=== PATIENT | female | born 1960 | race Caucasian/White ===

== ENCOUNTER 2018-08-02 19:36 | Inpatient (IN) | payer SELFPAY ==
[~2018-08-02 19:36] MED LIST: ISOVUE-370 76%-LOCM 1 ML ONE
[2018-08-02 20:21] LABS: #Eosinphils 0.1 thou/uL (0.0-0.7); #Lymphocytes 1.4 thou/uL (1.20-3.40); #Monocytes 0.5 thou/uL (0.11-0.59); #Neutrophils 8.6 thou/uL (1.40-6.50); %Basophils 0.4 % (0.0-1.0); %Eosinophils 0.8 % (0.0-10.0); %Neutrophils 80.8 % (42.0-75.0); Hemoglobin 15.3 g/dL (12.0-16.0); Mean Corpuscular HGB CONC 33.5 g/dL (32.0-36.0); Mean Corpuscular Hemoglobin 32.2 pg (27.0-31.0); Mean Corpuscular Volume 96.1 fL (78.0-98.0); Mean Platelet Volume 6.8 fL (7.4-10.4); Platelet Count 331 thou/uL (130-400); RBC Distribution Width 12.5 % (11.5-14.5); Red Blood Cell (RBC) Count 4.76 mill/uL (4.20-5.40); White Blood Cell (WBC) Count 10.6 thou/uL (4.8-10.8)
[2018-08-02 20:38] LABS: ALT (SGPT) 66 U/L (8-55); AST (SGOT) 29 U/L (5-34); Alkaline Phosphatase 73 U/L (40-150); Anion Gap 13 mmol/L (10-20); BUN (Urea Nitrogen) 14 mg/dL (9.8-20.1); Bilirubin, Total 0.6 mg/dL (0.2-1.2); Calc. Creatinine Clearance 0 mL/min (70-130); Calcium 9.3 mg/dL (7.8-10.44); Carbon Dioxide 24 mmol/L (22-29); Chloride 104 mmol/L (98-107); Estimated GFR-MDRD 79; Globulin 2.4 g/dL (2.4-3.5); Glucose 112 mg/dL (70-105); Lipase 12 U/L (8-78); Potassium 4.3 mmol/L (3.5-5.1); Protein, Total 6.4 g/dL (6.0-8.3); Sodium 137 mmol/L (136-145)
[2018-08-02] MEDS ORDERED: Lidocaine Viscous Sol 2% 15 ml UD Cup ONE (20:51)
[2018-08-02] MEDS ORDERED: Mag-Al 1200 mg/1200 mg/30 ML UDCUP ONE (20:51)
[2018-08-02] MEDS ORDERED: Ondansetron PF 4 MG/2 ML Vial ONE (22:05)
[2018-08-02] MEDS ORDERED: Fentanyl 100 MCG/2 ML VIAL ONE (22:05)
--- NOTE | 2018-08-02 22:46 | CT ---
FCT abdomen and pelvis with IV contrast. Oral contrast was not administered. INDICATIONS: Abdominal pain COMPARISON: None FINDINGS: Lung bases are clear Liver, spleen, and pancreas appear unremarkable. Stomach and duodenum appear unremarkable. The gallbladder is distended. Gallstones may not be apparent on CT. Adrenal glands appear normal. Kidneys appear unremarkable. Collecting structures and urinary bladder appear unremarkable. Small bowel loops are normal caliber and exhibit normal fold pattern. Appendix is identified and appears unremarkable. Colon is unremarkable. Aorta is normal caliber. No evidence of retroperitoneal or mesenteric adenopathy. Pelvic structures appear unremarkable. Subcutaneous tissues, abdominal wall, and muscular structures appear unremarkable. Osseous structures appear unremarkable. IMPRESSION: Gallbladder appears distended. This is nonspecific. No pericholecystic edema or inflammation seen. Otherwise no acute process.
[2018-08-02 23:05] LABS: Bilirubin Negative (Negative); Blood, Urine Negative (Negative); Clarity CLEAR (Clear); Glucose, Urine (Dipstick) Negative (Negative); Leukocyte Negative (Negative); Nitrite Negative (Negative); Protein, Urine (Dipstick) Negative (Neg-Trace); Specific Gravity, Urine 1.043 (1.002-1.036); Urobilinogen 0.2 mg/dL (0.2-1.0); pH, Urine 6.5 (5.0-9.0)
[2018-08-02] MEDS ORDERED: Morphine 4 MG/ML VIAL ONE (23:22)
--- NOTE | 2018-08-02 23:30 | ULT ---
GALLBLADDER ULTRASOUND: 08/02/18 HISTORY: Right upper quadrant pain. FINDINGS: The gallbladder is distended. There is a gallstone in the neck of the gallbladder. Mild thickened gal lbladder wall with mild pericholecystic edema is noted. Common bile duct is normal caliber. Liver and visualized pancreas unremarkable. Right kidney is imaged and appeared unremarkable. Technologist describes a positive Payne's sign. IMPRESSION: Mildly distended gallbladder. There is a gallstone in the neck of the gallbladder and there is mild p ericholecystic edema with a positive Payne's sign noted. Findings would indicate cholelithiasis with cholecystitis. POS: [facility]
[2018-08-03] MEDS ORDERED: Piperacillin/Tazobactam 3.375 GM VIAL ONE (00:21)
[2018-08-03] MEDS ORDERED: Morphine 4 MG/ML VIAL ONE (00:53)
[2018-08-03] MEDS ORDERED: Ondansetron PF 4 MG/2 ML Vial IVP PRN (02:43)
[2018-08-03 02:45] VITALS: BMI 22.6
[2018-08-03] MEDS: Sodium Chloride 0.9% 1,000 ML IV SCH ×2 (02:56→12:00)
[2018-08-03] MEDS: Morphine 4 MG/ML VIAL SLOW IVP PRN ×2 (02:56→09:06)
[2018-08-03] MEDS: Piperacillin/Tazobactam 3.375 GM in Sodium Chloride 0.9% 100 ML IVPB SCH ×2 (06:40→12:00)
[2018-08-03] MEDS ORDERED: PROPOFOL 200 MG/20 ML VIAL ONE (08:55)
[2018-08-03] MEDS ORDERED: Lidocaine 1% PF 5 ML VIAL ONE (08:55)
[2018-08-03] MEDS ORDERED: Ondansetron PF 4 MG/2 ML Vial ONE (08:55)
[2018-08-03] MEDS ORDERED: Rocuronium Bromide 10 MG/ML (10ML VIAL) ONE (08:55)
[2018-08-03] MEDS ORDERED: Glycopyrrolate 0.2 MG/ML 5 ML SYRINGE ONE (08:55)
[2018-08-03] MEDS ORDERED: Dexamethasone 20 MG/5 ML VIAL ONE (08:55)
[2018-08-03] MEDS ORDERED: Ketorolac Tromethamine 30 MG/ML VIAL IVP SCH (12:00)
[2018-08-03] MEDS ORDERED: Acetaminophen 1,000 MG in Premix Bag 1 BAG IVPB SCH (12:00)
[2018-08-03] MEDS ORDERED: Scopolamine 1.5 mg/72 hour Patch TOP SCH (12:00)
[2018-08-03 12:01] VITALS: BP 139/84; TEMP 98.8
[2018-08-03] MEDS ORDERED: Bupivacaine HCl 0.5%/Epinephrine 1:200,000/PF 30 ml Vial ONE (12:14)
[2018-08-03] MEDS ORDERED: Fentanyl 100 MCG/2 ML VIAL ONE (12:14)
[2018-08-03] MEDS ORDERED: Ketorolac Tromethamine 30 MG/ML VIAL ONE (12:18)
[2018-08-03] MEDS ORDERED: Scopolamine 1.5 mg/72 hour Patch ONE (12:19)
[2018-08-03] MEDS ORDERED: Promethazine HCl 25 MG/ML VIAL SLOW IVP PRN (13:37)
[2018-08-03] MEDS ORDERED: Promethazine HCl 25 MG/ML VIAL IM PRN (13:37)
[2018-08-03] MEDS ORDERED: Ondansetron HCl/PF 4 MG/2 ML Vial IVP PRN (13:37)
[2018-08-03] MEDS ORDERED: Ibuprofen 600 MG TAB PO PRN (13:39)
[2018-08-03] MEDS ORDERED: Acetaminophen 500 MG TAB PO PRN (13:39)
[2018-08-03] MEDS ORDERED: traMADol HCl 50 MG TAB PO PRN ×2 (13:39)
--- NOTE | 2018-08-03 14:52 | HP ---
HISTORY: A 58-year-old female with acute onset of epigastric right upper quadrant pain, back radiation, nausea, who presents to the emergency room. CAT scan of the abdomen and pelvis was unremarkable. Ultrasound revealed gallstone, obstructing gallbladder outlet. Liver function tests are normal. CBC normal. ALLERGIES: NONE. SOCIAL HISTORY: Tobacco, none. Alcohol, rarely. MEDICATIONS: None routinely. PAST SURGICAL HISTORY: , 9, para 9. PAST MEDICAL HISTORY: Noncontributory. REVIEW OF SYSTEMS: Ten-point noncontributory. FAMILY HISTORY: Noncontributory. PHYSICAL EXAMINATION: VITAL SIGNS: Blood pressure 120/64, respiratory rate 18, and heart rate is 68. HEENT: Sclerae nonicteric. SKIN: Nonjaundiced. LUNGS: Clear to auscultation. CARDIAC: Regular rate and rhythm without murmur or gallop. ABDOMEN: Soft. Tenderness in her epigastric right upper quadrant with positive Payne's sign. EXTREMITIES: Unremarkable. LABORATORY DATA: Liver function tests are normal. CBC normal. ASSESSMENT AND PLAN: Acute cholecystitis. We recommend laparoscopic video cholecystectomy. Risks of infection, bleeding, visceral, and biliary injury were discussed. She consents. Job ID: [id number]
--- NOTE | 2018-08-03 14:59 | OP ---
DATE OF PROCEDURE: 08/03/2018 PREOPERATIVE DIAGNOSES: Acute cholecystitis, cholelithiasis, gallbladder obstruction, hydrops of the gallbladder. POSTOPERATIVE DIAGNOSES: Acute cholecystitis, cholelithiasis, gallbladder obstruction, hydrops of the gallbladder. PROCEDURE PERFORMED: Laparoscopic video cholecystectomy. ANESTHESIA: General, local of 0.5% Marcaine with epinephrine 30 mL. DESCRIPTION OF PROCEDURE: The patient was taken to the operating room, where under general anesthesia, abdomen was prepared with ChloraPrep and draped in routine fashion. Local anesthetic was infiltrated in the skin and subcutaneous tissue about each port site. An infraumbilical incision was made. Pneumoperitoneum to 15 mmHg was obtained with a Veress needle placement with a 5 port and video laparoscope inserted. Right subxiphoid incision was made and an 11 port placed. Right subcostal incision was made, midclavicular anterior axillary lines and 5 port was placed. The gallbladder was acutely inflamed, edematous, requiring decompression to grasp it. Liver appeared to be normal. Fundus was grasped at the cephalad. Infundibulum was grasped and retracted laterally. There was a large stone at the gallbladder outlet obstructing the cystic duct causing hydrops. Cystic artery and duct were dissected free. Critical view was obtained. Cystic artery and duct were double clipped proximally, divided and gallbladder dissected free from the liver bed obtaining good hemostasis prior to division of the final peritoneal attachments. Gallbladder and contents were removed and submitted to Pathology. Good hemostasis ensured with cautery. Irrigant and pneumoperitoneum were evacuated. All instruments were removed. All skin incisions were approximated with interrupted subdermal 4-0 Monocryl and [place] glue applied. Job ID: [id number]
--- NOTE | 2018-08-05 08:10 | DIS ---
DATE OF ADMISSION: 08/03/2018 DATE OF DISCHARGE: 08/03/2018 HISTORY: A 58-year-old female presents with acute cholecystitis, supported by ultrasound and CAT scan. Normal liver function test. Hospitalized overnight, underwent laparoscopic video cholecystectomy. Postoperatively, discharged home and follow up in my office 1 to 2 weeks. Diet and activity as tolerated. Shower and bathe whenever. No activity or lifting restrictions. Tylenol and Motrin [id number] for pain, Ultram if needed. Job ID: [id number]
== END 2018-08-03 18:42 | disposition home or self-care (01) | DRG 418 ==
LOC: ERS 19:36 → SURG B 08-03 00:30
PROVIDERS: ADMIT Specialist; ATTEND Specialist
PROC: 0FT44ZZ Resection of Gallbladder, Percutaneous Endoscopic Approach (ICD-10-PCS; principal; 2018-08-03)
DX: K80.01 Calculus of gallbladder with acute cholecystitis with obstruction (principal); K82.1 Hydrops of gallbladder
CPT/HCPCS: 36415; 74177; 76705; 80053; 81003; 83690; 85025; 93005; J0131; J0670; J1885; J2270; J2405; J2543; J3010; J7050; Q9966